=== PATIENT | female | born 1945 | race Caucasian/White ===

== ENCOUNTER → 2017-08-22 | Outpatient (CLI) | payer OTHER ==
[~2017-08-22] MED LIST: ACETAMINOPHEN325 M1 PO; AMARYL2 MG PO; ASPIR 8181 MG PO; ASPIRIN325 OR; ASPIRIN325 PO; ASPIRIN81 M2 PO; AZOR 10-40 MG1 EACH; AZOR 10-40 MG1 EACH PO; BACTRIM DS TAB1 EACH PO; BYSTOLIC 5 MG5 M1 PO; BYSTOLIC 5 MG5 MG; BYSTOLIC10 MG PO; COZAAR 25 MG TA25 M1 PO; COZAAR 50 MG TA50 M2 PO; COZAAR100 MG PO; CRESTOR40 MG; CRESTOR40 MG PO; DUONEB 2.5-0.5 M3 ML INH; ECOTRIN325 MG PO; ENOXAPARIN30 MG/0.1 SUBQ; EUCERIN CREME57 GM TOP; FAMOTIDINE20 MG/2 M2 IV PUSH; FENOFIBRATE134 MG PO; FERROUS FUMARAT PO; FISH OIL 1,001000 M2 PO; FISH OIL 1,2001 EAC3 PO; FOLBIC RF TABL1 EACH PO; FUROSEMIDE 40 M40 M1 PO; GLUCOPHAGE1000 MG; GLUCOPHAGE1000 MG PO; HUMALOG100 UNIT/1 SUBQ; HYDROCODONE-AP1 EAC6 PO; IRON325 PO; LOPRESSOR50 PER TUBE; LOVAZA1000 MG PO; MELATONIN1 MG PO; METHYLPHENIDATE5 M1 PO; NIASPAN 500 MG500 M1; NIASPAN PO; NORCO 5-325 TA1 EACH PO; NORVASC10 MG PO; PANTOPRAZOLE SO40 M1 PO; PERCOCET 5-3251 EACH PO; PLAVIX 75 MG TA75 MG PO; PROTONIX 20 MG20 MG PO; PROTONIX40 M2 PO; ROSUVASTATIN CA40 MG PO; SPIRONOLACTONE25 M1 PO; TENORMIN25 MG PO; TRADJENTA5 MG PO; TRAMADOL 50 MG50 MG PO; TRILIPIX135 MG; TRILIPIX135 MG PO; VITAMIN B-12500 MCG PO; VITAMIN D1000 UNI1 PO; VITAMIN D400 UNI1 PO; ZOFRAN ODT4 MG PO; ZOFRAN4 MG PO
== END ==
LOC: RAD 10:30
DX: J90 Pleural effusion, not elsewhere classified (principal); R59.1 Generalized enlarged lymph nodes

== ENCOUNTER 2017-09-16 09:01 | Inpatient (IN) | payer OTHER ==
[2017-09-16] VITALS (7 sets, daily range): BP systolic 117–168; BP diastolic 45–74
[~2017-09-16] VITALS: Ht 162.6 cm; Wt 77.0 kg
--- NOTE | ~2017-09-16 | HC ---
[facility] [place] [address] CONSULTATION Name: CRISS KEE Room #: 241-P [facility] IN M.R.#: [id number] Admission: 09/16/17 Attend Phys: Quita Melgoza Discharge: Date of : 43 Report #: [id number] THIS REPORT FOR: //name// CC: Dena Melgoza DATE OF SERVICE: 09/16/2017 PRIMARY CARE PHYSICIAN: Dena Huynh MD. REFERRAL PHYSICIAN: Quita Melgoza MD. REASON FOR REFERRAL: Dyspnea. HISTORY OF PRESENT ILLNESS: The patient is a 71-year-old white female who is known to this physician, presents to the Emergency Room with progressive dyspnea. A pulmonary consultation was requested. The patient was recently seen by this physician for initial consultation on 08/22/2017. She was seen for progressive dyspnea, hoarseness and edema. Symptoms started in early part of July. The patient has smoked about a pack a day for most of her life. When she was seen, spirometry performed revealed severe airflow obstruction with an FEV1 of 0.95 liter, 46% predicted. Recent echocardiogram showed ejection fraction 50%, mild aortic regurgitation and stenosis, wntstozj-wn-hhdulo mitral regurgitation. More recently dyspnea has worsened. She also notes that she lost about 10 pounds over the past few weeks. Otherwise, denies any fever, night sweats or chills, chest pain or productive cough. PAST MEDICAL HISTORY: Status post coronary bypass surgery in 09/2015, coronary artery disease, aortic stenosis, peripheral artery disease involving the carotids, diabetes mellitus type 2, chronic anemia, hypertension, status post stent placement involving the right superficial femoral artery, left renal artery stenosis with stent placement, tobacco abuse mentioned above. PAST SURGICAL HISTORY: As mentioned above including tonsillectomy. ALLERGIES: None to medications. CURRENT MEDICATIONS: Reviewed. This includes fenofibrate, B12 multivitamin replacements, vitamin D replacement, Crestor 40 mg once a day, aspirin 325 mg once a day, amlodipine, losartan, Tenormin, Amaryl. [address] [address] CONSULTATION Name: CRISS KEE Room #: 241-P [facility] IN M.R.#: [id number] Admission: 09/16/17 Attend Phys: Quita Melgoza Discharge: Date of : 43 Report #: [id number] FAMILY HISTORY: Father , reasons unknown. SOCIAL HISTORY: She is . She recently quit smoking, smoking less than a pack a day. She denies any alcohol use. REVIEW OF SYSTEMS: As mentioned above. Otherwise, 10-point system review negative. PHYSICAL EXAMINATION: GENERAL: She is awake, alert, in mild distress. She appears mildly dyspneic. VITAL SIGNS: Pulse is 70, respiratory rate is 14, blood pressure 168/74 mmHg, saturation 99%. HEENT: Unremarkable. NECK: Supple with large mass involving the base of the right neck. CHEST: Breath sounds are fair. Coarse breath sounds bilaterally. Mild expiratory wheezes. CARDIOVASCULAR: Normal S1, S2. A soft 2/6 systolic murmur best heard at the left sternal border. No gallop. Pulses are 2+/4+ bilaterally. BREASTS: Exam deferred. ABDOMEN: Soft, nontender. No organomegaly or masses felt. GENITOURINARY: Deferred. RECTAL: Deferred. EXTREMITIES: No cyanosis or clubbing, but notable for 2+ bilateral pretibial edema. LABORATORY DATA: CT chest, CT soft tissue of the neck, chest x-rays reviewed. CT chest shows evidence of an extensive neck and mediastinal and hilar adenopathy with adenopathy encircling the trachea, right and left mainstem bronchus with marked narrowing involving the right main stem bronchus, mild bibasilar fibrosis. Soft tissue density in the left lower lobe, minimal left-sided pleural effusion. EKG shows no acute ischemic changes, borderline prolonged WA interval, sinus rhythm, left atrial enlargement, incomplete right bundle branch block, inferior infarct. BNP is 2000. Electrolytes normal except for creatinine 1.5, BUN is 22. Liver enzymes are grossly unremarkable. WBC 7600, hemoglobin is 11.4, albumin 3.0. IMPRESSION: 1. Progressive dyspnea, hoarseness in this 71-year-old white female. She had a recent weight loss. CT chest, CT neck and chest x-ray as mentioned above showing extensive mediastinal and hilar adenopathy along with left lower lobe soft tissue density. 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 2. Chronic obstructive pulmonary disease, severe impairment with exacerbation. 3. Hoarseness, likely vocal cord dysfunction. 4. Tobacco abuse. 5. Generalized edema likely related to right-sided heart failure. [address] [address] CONSULTATION Name: CRISS KEE Room #: 241-P [facility] IN M.R.#: [id number] Admission: 09/16/17 Attend Phys: Quita Melgoza Discharge: Date of : 43 Report #: [id number] 6. Renal insufficiency, appears to be chronic with a baseline creatinine of 1.3-1.6. 7. Coronary artery disease, status post coronary bypass surgery. 8. Peripheral artery disease, status post renal stent, right lower extremity stent placement. RECOMMENDATION AND DISCUSSION: Based on above findings, the safest procedure will be a needle biopsy of the right supraclavicular neck mass. This will also help us in staging. Based on the CT chest finding, diagnostic bronchoscopy would also be helpful to assess the airway involvement. The pathology involved suggests the patient might benefit from brachytherapy. It is quite localized in the mediastinum and severely restricting the right main stem bronchus. Concerns of total obstruction of the right main stem bronchus with potential treatment. Agree with bronchodilators, corticosteroids, and broad-spectrum antibiotics. These findings are discussed with the patient, wished to proceed with needle biopsy as an initial step for workup. Of note, when the patient was seen in the office on 08/29/2017, I had recommended CT chest, which appears have not been done following the office visit. Thank you for this consultation. <ELECTRONICALLY SIGNED> By: Arcadio Torrez MD 09/17/17 1815 [id number] Arcadio Torrez MD /nt
--- NOTE | ~2017-09-16 | O ---
[facility] [place] [address] OPERATIVE REPORT Name: CRISS KEE Room #: 241-P [facility] IN M.R.#: [id number] Admission: 09/16/17 Attend Phys: Quita Melgoza Discharge: Date of : 43 Report #: [id number] THIS REPORT FOR: //name// CC: Dena Melgoza PROCEDURE: Diagnostic bronchoscopy. CLINICAL HISTORY: A 71-year-old white female with large mediastinal hilar adenopathy along with a right supraclavicular mass. Diagnostic bronchoscopy was performed to assess airway involvement. POSTOPERATIVE DIAGNOSES: Moderate mucosal edema involving the distal trachea to both right and left mainstem bronchus. Mild edema is also noted in all 5 lobes. No endobronchial lesion. DESCRIPTION OF PROCEDURE: Following obtaining consent and risks and benefits were explained to the patient's which included infection and bleeding, the procedure was performed in the Intensive Care Unit. The patient was already intubated by Anesthesia. She is currently on sedation. A portable flexible fiberoptic bronchoscope was then introduced through the ET tube. The distal trachea and the rest of the airway revealed iqfg-rs-dtxmuvxh mucosal erythema and edema. The airways were fairly patent bilaterally. Otherwise, the tammi was grossly unremarkable. Left main stem bronchus, left upper lobe and left lower lobe revealed lcjv-sk-ddpurxia mucosal erythema and edema. The right main stem bronchus, right upper lobe, right middle lobe and right lower lobe were also gross remarkable for jmmi-ap-ejrkxwoo mucosal erythema and edema. Airway appears patent. No washing or brushing was performed as the patient just recently had a needle biopsy of the supraclavicular mass involving the left side. Otherwise, the patient tolerated the procedure well. No complications noted. <ELECTRONICALLY SIGNED> By: Arcadio Torrez MD 09/22/17 1759 1653 1710 Arcadio Torrez MD /nt
--- NOTE | ~2017-09-16 | EKG ---
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 : 1945 Requested By: Annmarie Ramos Order Number: [id number] MD: Clint Solano Measurements Intervals [place] Rate: 102 P: CO: QRS: 30 QRSD: 122 T: 174 QT: 319 QTc: 416 Interpretive Statements Sinus tachycardia with frequent and consecutive supraventricular complexes Right bundle branch block Inferior infarct, old Compared to ECG 09/16/2017 09:23:17 supraventricular ectopy is now present Electronically Signed On 09-18-2017 8:36:27 CDT by Clint Solano [email or web address] <ELECTRONICALLY SIGNED> By: Clint Solano MD, [facility] 09/18/17 0836 23 Clint Solano MD, [facility] /EPI
--- NOTE | ~2017-09-16 | HC ---
[facility] [place] [address] CONSULTATION Name: CRISS KEE Room #: 241-P [facility] IN M.R.#: [id number] Admission: 09/16/17 Attend Phys: Quita Melgoza Discharge: Date of : 43 Report #: [id number] THIS REPORT FOR: //name// CC: Dena Melgoza HISTORY OF PRESENT ILLNESS: This patient is seen in consultation regarding possible bronchogenic carcinoma. She is admitted with complaints of progressive dyspnea over the past month. She reports that she stopped smoking 4 weeks ago; prior to this, she smoked minimum half pack per day and has done so for the last 55+ years. She denies any hemoptysis or pain. She has undergone a CAT scan in evaluation of questionable hilar fullness, which shows extensive mediastinal hilar and supraclavicular adenopathy, also with airway narrowing. She has been seeing Dr. Torrez, who plans to perform a bronchoscopy tomorrow. PAST MEDICAL HISTORY: Her medical history is also reviewed in the [facility] records as she follows with Dr. Huynh. She has a history of long-standing aortic stenosis and prior congestive heart failure. She has prior non-STEMI along with renal insufficiency. She has had previous coronary artery bypass grafting. She has COPD related to her tobacco use. ALLERGIES: ADHESIVE TAPE. MEDICATIONS: As listed on the MFR. REVIEW OF SYSTEMS: Negative, except as noted in the history of present illness for worsening dyspnea. This is particularly with exertion and upon standing, which I assume is related to airways compromised. She has not noted any facial or arm swelling. PHYSICAL EXAMINATION: GENERAL: Shows her to be alert. She is wearing oxygen. NECK: Shows a large right supraclavicular mass. CARDIOVASCULAR: Normal S1, S2. CHEST: Reveals wheezing along with diminished breath sounds. ABDOMEN: Soft. SKIN: Shows normal turgor. EXTREMITIES: Show an IV in the right arm, with no evidence of edema. NEUROLOGIC: No focal localizing signs. PSYCHIATRIC: Not agitated or confused. LABORATORY DATA: Laboratory studies were reviewed and also show her to be hypercalcemic. ASSESSMENT AND PLAN: Assume adenopathy is related to malignancy. She may also have bone involvement with findings of hypercalcemia. We will await results of her pending bronchoscopy for additional diagnosis. Full and further [address] [address] CONSULTATION Name: CRISS KEE Room #: [facility]-P [facility] IN ..#: [id number] Admission: 09/16/17 Attend Phys: Quita Melgoza Discharge: Date of : 43 Report #: [id number] recommendations will be forthcoming. Thanks again for allowing us to see her in consultation and asking us to participate in her care. <ELECTRONICALLY SIGNED> By: Ana Adhikari MD 09/18/17 1450 12 0230 Ana Adhikari MD /nt
--- NOTE | ~2017-09-16 | 2DMMODE ---
[facility] [address] [place] [address] 2 D/M-MODE ECHOCARDIOGRAM Name: CHILANGO,CRISS K Room #: 241-P [facility] IN ..#: [id number] Admission: 09/16/17 Attend Phys: Quita Smith Discharge: Date of : 43 Date of Service: 09/18/17 0850 Report #: [id number] THIS REPORT FOR: //name// APPROVED REPORT Study performed: 09/18/2017 07:40:24 EXAM: Comprehensive 2D, Doppler, and color-flow Echocardiogram Patient Location: ICU Room #: 241 Status: routine BSA: 1.79 HR: 96 bpm BP: 130/60 mmHg Rhythm: Atrial Fibrillation/Flutter Other Information Study Quality: Technically Limited Technically limited study due to lung disease, inability to position patient. Indications Atrial Fibrillation Hypertension/HDD Shortness of breath, MCCANN, AVR 09/23/2015 2D Dimensions LVEF(%): 60.53 (>50%) IVSd: 15.80 (7-11mm) LVOT Diam: 20.99 (18-24mm) LVDd: 38.28 mm PWd: 13.94 (7-11mm) Ascending Ao: 28.59 (22-36mm) LVDs: 26.12 (25-40mm) Aortic Root: 28.44 mm IVC: 18.00 mm Betancourt's LVEF: 60.53 % Volumes Left Atrial Volume (Systole) Single Plane 4CH: 43.43 mL Single Plane 2CH: 40.83 mL LA ESV Index: 25.00 mL/m2 Aortic Valve AoV Peak Dom.: 2.81 m/s AO Peak Gr.: 31.76 mmHg LVOT Max P.24 mmHg AO Mean Gr.: 15.85 mmHg LVOT Mean P.22 mmHg AO V2 Mean: 1.84 m/s LVOT Max V: 1.02 m/s [facility] [place] [address] 2 D/M-MODE ECHOCARDIOGRAM Name: CHILANGOCRISS K Room #: 241-P [facility] IN .R.#: [id number] Admission: 09/16/17 Attend Phys: Quita Smith Discharge: Date of : 43 Date of Service: 09/18/17 0850 Report #: [id number] V2 VTI: 52.73 cm LVOT Mean V: 0.66 m/s FIDEL (VTI): 1.54 cm2 LVOT V1 VTI: 23.51 cm FIDEL Vmax: 1.26 cm2 SV (LVOT): 81.26 mL Mitral Valve MV Decel. Time: 188.23 ms MV E Max Dom.: 1.15 m/s Pulmonary Valve PV Peak Dom.: 0.94 m/s PV Peak Gr.: 3.55 mmHg Tricuspid Valve RAP Estimate: 5.00 mmHg Left Ventricle The left ventricle is normal size. There is normal LV segmental wall motion. Mild concentric left ventricular hypertrophy. The left ventricular systolic function is normal. The left ventricular ejection fraction is within the normal range. LVEF is 55-60%. Grade I - abnormal relaxation pattern. Right Ventricle Right ventricle is not well visualized. Atria The left atrium size is normal. Right atrium is not well visualized. Aortic Valve The prosthetic aortic valve leaflets not well visualized due to valve shadowing. Trace aortic regurgitation. Calculated aortic valve area is 1.3 cm2 with maximum pressure gradient of 32 mmHg and mean pressure gradient of 16 mmHg. Mitral Valve Mild mitral annular calcification; mild leaflet thickening Moderate mitral regurgitation. No evidence of mitral valve stenosis. Tricuspid Valve The tricuspid valve is not well visualized. Mild tricuspid regurgitation. Unable to assess PA pressure. Pulmonic Valve Pulmonic valve is not well visualized. [place] [id number] 2 D/M-MODE ECHOCARDIOGRAM Name: CRISS KEE Room #: 241-P [facility] IN [facility]#: [id number] Admission: 09/16/17 Attend Phys: Quita Smith Discharge: Date of : 43 Date of Service: 09/18/17 0850 Report #: [id number] Great Vessels The aortic root is normal in size. IVC is normal in size and collapses >50% with inspiration. Pericardium There is no pericardial effusion. <Conclusion> The left ventricular systolic function is normal. There is normal LV segmental wall motion. Mild LVH LVEF is 55-60%. Mild diastolic dysfunction The prosthetic aortic valve leaflets not well visualized due to valve shadowing. Trace insufficiency Calculated aortic valve area is 1.3 cm2 with maximum pressure gradient of 32 mmHg and mean pressure gradient of 16 mmHg. Mild mitral annular calcification; mild leaflet thickening. Moderate mitral regurgitation. There is no pericardial effusion. <ELECTRONICALLY SIGNED> By: Clint Solano MD, FACC 09/18/1750 Clint Solano MD, FACC /INF
--- NOTE | ~2017-09-16 | EKG ---
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
[2017-09-16 09:16] LABS: ABSOLUTE NEUTROPHILS 5.2 thou/uL (1.4-8.2); BASOPHILS 0.6 % (0.0-2.0); EOSINOPHILS 1.6 % (0.0-3.0); HEMATOCRIT 43.6 % (37.0-47.0); HEMOGLOBIN 14.3 gm/dL (12.0-15.0); LYMPHOCYTES 22.7 % (24.0-44.0); MCHC 32.7 g/dL (28.0-37.0); MCV 85.6 fL (80.0-100.0); MONOCYTES 6.9 % (1.0-8.0); PLATELET COUNT 147 thou/uL (150-400); POLYS 68.2 % (36.0-66.0); RDW 17.3 % (10.5-14.5); WBC 7.6 thou/uL (4.0-11.0)
[2017-09-16 09:39] LABS: ANION GAP 10 mmol/L (7-16); BUN 29 mg/dL (7-18); CHLORIDE 105 mmol/L (98-107); CO2 22 mmol/L (21-32); CREATININE 1.5 mg/dL (0.6-1.0); GLUCOSE 126 mg/dL (74-106); POTASSIUM 4.6 mmol/L (3.5-5.1); SODIUM 137 mmol/L (136-145)
[2017-09-16 09:42] LABS: CALCIUM 12.1 mg/dL (8.5-10.1)
[2017-09-16 09:47] LABS: SGOT 23 U/L (15-37); SGPT 16 U/L (30-65); TOTAL BILIRUBIN 0.4 mg/dL (<0.1-1.0); TOTAL PROTEIN 7.2 g/dL (6.4-8.2); TROPONIN-I < 0.04 ng/mL (<0.06)
[2017-09-16 09:47] LABS: BE(vivo) -5.6 mmol/L (-2 to +3); HCO3 18.5 mmol/L (22.0-26.0); PCO2 32.3 mmHg (35.0-45.0); PO2 69.4 mmHg (80.0-100.0); pH 7.375 (7.360-7.450); sO2 93.8 % (92.0-98.0)
[2017-09-17] VITALS (46 sets, daily range): BP systolic 95–164; BP diastolic 43–97
[2017-09-17 04:53] LABS: HEMATOCRIT 42.6 % (37.0-47.0); HEMOGLOBIN 13.7 gm/dL (12.0-15.0); MCH 27.5 pg (26.0-34.0); MCHC 32.2 g/dL (28.0-37.0); MCV 85.4 fL (80.0-100.0); RBC 4.99 mil/uL (4.20-5.00); RDW 17.2 % (10.5-14.5); WBC 6.9 thou/uL (4.0-11.0)
[2017-09-17 04:57] LABS: CALCIUM 11.1 mg/dL (8.5-10.1); CREATININE 1.5 mg/dL (0.6-1.0); POTASSIUM 4.9 mmol/L (3.5-5.1)
[2017-09-18] VITALS (53 sets, daily range): BP systolic 99–143; BP diastolic 43–94
[2017-09-18 00:48] LABS: BE(vivo) -3.2 mmol/L (-2 to +3); HCO3 21.7 mmol/L (22.0-26.0); PCO2 38.6 mmHg (35.0-45.0); PO2 82.1 mmHg (80.0-100.0); pH 7.368 (7.360-7.450); sO2 95.8 % (92.0-98.0)
[2017-09-18 04:22] LABS: CALCIUM 10.7 mg/dL (8.5-10.1); CREATININE 1.6 mg/dL (0.6-1.0)
[2017-09-18 04:23] LABS: POTASSIUM 3.9 mmol/L (3.5-5.1)
[2017-09-18 04:40] LABS: HEMATOCRIT 40.8 % (37.0-47.0); HEMOGLOBIN 13.4 gm/dL (12.0-15.0); MCH 27.9 pg (26.0-34.0); MCHC 32.8 g/dL (28.0-37.0); MCV 85.3 fL (80.0-100.0); RBC 4.78 mil/uL (4.20-5.00); WBC 10.4 thou/uL (4.0-11.0)
[2017-09-18 09:10] LABS: BE(vivo) -3.2 mmol/L (-2 to +3); HCO3 21.1 mmol/L (22.0-26.0); PCO2 35.7 mmHg (35.0-45.0); PO2 74.5 mmHg (80.0-100.0)
[2017-09-18 09:52] LABS: HCO3 17.7 mmol/L (22.0-26.0); PCO2 33.5 mmHg (35.0-45.0); PO2 95.8 mmHg (80.0-100.0)
[2017-09-19] VITALS (57 sets, daily range): BP systolic 60–164; BP diastolic 34–100
[2017-09-19 05:52] LABS: CALCIUM 10.6 mg/dL (8.5-10.1); CREATININE 1.4 mg/dL (0.6-1.0); POTASSIUM 4.5 mmol/L (3.5-5.1)
[2017-09-19 05:53] LABS: BASOPHILS 0.1 % (0.0-2.0); EOSINOPHILS 0.1 % (0.0-3.0); HEMATOCRIT 42.8 % (37.0-47.0); HEMOGLOBIN 13.8 gm/dL (12.0-15.0); LYMPHOCYTES 3.1 % (24.0-44.0); MCH 27.7 pg (26.0-34.0); MCHC 32.1 g/dL (28.0-37.0); MCV 86.3 fL (80.0-100.0); PLATELET COUNT 207 thou/uL (150-400); POLYS 91.7 % (36.0-66.0); RBC 4.96 mil/uL (4.20-5.00); RDW 17.2 % (10.5-14.5); WBC 18.6 thou/uL (4.0-11.0)
[2017-09-19 12:34] LABS: BE(vivo) -1.8 mmol/L (-2 to +3); HCO3 22.3 mmol/L (22.0-26.0); PO2 66.1 mmHg (80.0-100.0); sO2 93.4 % (92.0-98.0)
[2017-09-20] VITALS (25 sets, daily range): BP systolic 82–151; BP diastolic 47–90
[2017-09-20 04:27] LABS: HEMATOCRIT 39.9 % (37.0-47.0); HEMOGLOBIN 13.1 gm/dL (12.0-15.0); MCH 27.8 pg (26.0-34.0); MCHC 32.9 g/dL (28.0-37.0); MCV 84.3 fL (80.0-100.0); RBC 4.73 mil/uL (4.20-5.00); RDW 17.1 % (10.5-14.5); WBC 9.4 thou/uL (4.0-11.0)
[2017-09-20 04:37] LABS: CALCIUM 9.9 mg/dL (8.5-10.1); CREATININE 1.7 mg/dL (0.6-1.0); POTASSIUM 4.5 mmol/L (3.5-5.1)
[2017-09-20 05:20] LABS: BE(vivo) -0.6 mmol/L (-2 to +3); HCO3 21.3 mmol/L (22.0-26.0); PCO2 27.9 mmHg (35.0-45.0); PO2 86.6 mmHg (80.0-100.0); pH 7.501 (7.360-7.450); sO2 97.4 % (92.0-98.0)
[2017-09-21] VITALS (26 sets, daily range): BP systolic 94–143; BP diastolic 40–82
[2017-09-21 21:05] LABS: HEMATOCRIT 34.2 % (37.0-47.0); HEMOGLOBIN 11.3 gm/dL (12.0-15.0); MCH 28.1 pg (26.0-34.0); MCHC 33.1 g/dL (28.0-37.0); RBC 4.03 mil/uL (4.20-5.00); RDW 17.1 % (10.5-14.5); WBC 13.5 thou/uL (4.0-11.0)
[2017-09-21 21:29] LABS: CALCIUM 9.2 mg/dL (8.5-10.1); CREATININE 1.9 mg/dL (0.6-1.0); POTASSIUM 4.9 mmol/L (3.5-5.1); TOTAL BILIRUBIN 0.7 mg/dL (<0.1-1.0); TOTAL PROTEIN 5.3 g/dL (6.4-8.2)
[2017-09-22] VITALS (62 sets, daily range): BP systolic 53–123; BP diastolic 23–65
[2017-09-22 04:36] LABS: HEMOGLOBIN 10.7 gm/dL (12.0-15.0); MCH 27.8 pg (26.0-34.0); MCHC 32.4 g/dL (28.0-37.0); MCV 85.6 fL (80.0-100.0); RBC 3.86 mil/uL (4.20-5.00); RDW 17.3 % (10.5-14.5); WBC 13.3 thou/uL (4.0-11.0)
[2017-09-22 04:39] LABS: CALCIUM 8.5 mg/dL (8.5-10.1); CREATININE 1.8 mg/dL (0.6-1.0); MAGNESIUM 2.3 mg/dL (1.8-2.4); POTASSIUM 5.1 mmol/L (3.5-5.1)
[2017-09-22 05:29] LABS: BE(vivo) -1.2 mmol/L (-2 to +3); PCO2 36.9 mmHg (35.0-45.0); PO2 76.5 mmHg (80.0-100.0); pH 7.413 (7.360-7.450); sO2 95.5 % (92.0-98.0)
[2017-09-23] VITALS (63 sets, daily range): BP systolic 81–111; BP diastolic 35–56
[2017-09-23 05:13] LABS: BE(vivo) -4.9 mmol/L (-2 to +3); HCO3 18.6 mmol/L (22.0-26.0); PO2 103.6 mmHg (80.0-100.0); pH 7.426 (7.360-7.450)
[2017-09-23 06:23] LABS: HEMATOCRIT 26.1 % (37.0-47.0); MCHC 32.7 g/dL (28.0-37.0); MCV 85.7 fL (80.0-100.0); RBC 3.05 mil/uL (4.20-5.00); RDW 17.1 % (10.5-14.5); WBC 17.8 thou/uL (4.0-11.0)
[2017-09-23 06:33] LABS: HEMOGLOBIN 8.5 gm/dL (12.0-15.0)
[2017-09-23 06:43] LABS: CREATININE 1.8 mg/dL (0.6-1.0); MAGNESIUM 2.4 mg/dL (1.8-2.4); POTASSIUM 5.3 mmol/L (3.5-5.1)
[2017-09-24 00:01] VITALS: BP 100/52
[2017-09-24 01:00] VITALS: BP 104/47
[2017-09-24 02:00] VITALS: BP 88/41
[2017-09-24 03:00] VITALS: BP 83/41
== END 2017-09-24 03:33 | DRG 802 ==
LOC: ER 09:01 → 4E 10:33 → EROBS 10:33 → 4E 11:17 → ICU 09-17 11:14
PROVIDERS: Hospitalist; Internal Medicine; Internal Medicine Pulmonary Disease; Nurse Practitioner Family; Physician Assistant
PROC: 5A1955Z Respiratory Ventilation, Greater than 96 Consecutive Hours (ICD-10-PCS; principal; 2017-09-16)
PROC: 0BH17EZ Insertion of Endotracheal Airway into Trachea, Via Natural or Artificial Opening (ICD-10-PCS; principal; 2017-09-16)
PROC: 07B63ZX Excision of Left Axillary Lymphatic, Percutaneous Approach, Diagnostic (ICD-10-PCS; 2017-09-18)
PROC: 0BJ08ZZ Inspection of Tracheobronchial Tree, Via Natural or Artificial Opening Endoscopic (ICD-10-PCS; 2017-09-19)
PROC: 02HV33Z Insertion of Infusion Device into Superior Vena Cava, Percutaneous Approach (ICD-10-PCS; 2017-09-22)
PROC: B5181ZA Fluoroscopy of Superior Vena Cava using Low Osmolar Contrast, Guidance (ICD-10-PCS; 2017-09-22)
PROC: B548ZZA Ultrasonography of Superior Vena Cava, Guidance (ICD-10-PCS; 2017-09-22)
DX: R59.0 Localized enlarged lymph nodes (principal); J96.21 Acute and chronic respiratory failure with hypoxia; A41.9 Sepsis, unspecified organism; J18.9 Pneumonia, unspecified organism; J44.1 Chronic obstructive pulmonary disease with (acute) exacerbation; I13.0 Hypertensive heart and chronic kidney disease with heart failure and stage 1 through stage 4 chronic kidney disease, or unspecified chronic kidney disease; E46 Unspecified protein-calorie malnutrition; L03.116 Cellulitis of left lower limb; C10.4 Malignant neoplasm of branchial cleft; E83.52 Hypercalcemia; I95.9 Hypotension, unspecified; N18.3 Chronic kidney disease, stage 3 (moderate); I48.91 Unspecified atrial fibrillation; Z79.01 Long term (current) use of anticoagulants; E11.22 Type 2 diabetes mellitus with diabetic chronic kidney disease; Z95.1 Presence of aortocoronary bypass graft; I25.10 Atherosclerotic heart disease of native coronary artery without angina pectoris; D69.6 Thrombocytopenia, unspecified; F17.210 Nicotine dependence, cigarettes, uncomplicated; E11.51 Type 2 diabetes mellitus with diabetic peripheral angiopathy without gangrene; Z71.6 Tobacco abuse counseling; Z79.4 Long term (current) use of insulin; Z91.048 Other nonmedicinal substance allergy status; Z68.29 Body mass index [BMI] 29.0-29.9, adult; Z85.828 Personal history of other malignant neoplasm of skin; Z82.49 Family history of ischemic heart disease and other diseases of the circulatory system
CPT/HCPCS: 10084; 10196; 27001; 62110; 62900